=== PATIENT | female | born 1995 | race Two or more races ===

== ENCOUNTER 2021-11-26 23:22 | Emergency (ER) | payer OTHER ==
[2021-11-26 23:29] VITALS: BP 104/66; PULSE 72; RESP 16; TEMP 98.1; BMI 29.2
[2021-11-26] MEDS ORDERED: diphenhydrAMINE HCL 50 MG CAPSULE PO ONE (23:40)
[2021-11-26] MEDS ORDERED: diphenhydrAMINE HCL 50 MG CAPSULE ONE (23:45)
[2021-11-27 00:37] LABS: PH,URINE 5.5 (5.0-8.0); URINE APPEARANCE CLEAR; URINE BILIRUBIN NEGATIVE (NEGATIVE); URINE COLOR YELLOW; URINE GLUCOSE (UA) NEGATIVE (NEGATIVE); URINE KETONE NEGATIVE (NEGATIVE); URINE LEUK ESTERASE NEGATIVE (NEGATIVE); URINE NITRITE NEGATIVE (NEGATIVE); URINE PROTEIN NEGATIVE (NEGATIVE); URINE UROBILINOGEN 0.2 mg/dL (0.2-1.0)
== END 2021-11-27 00:32 | disposition home or self-care (01) ==
LOC: FER 23:22
DX: R21 Rash and other nonspecific skin eruption (principal)
CPT/HCPCS: 81003; 81025; 84703; 87077; 87086; 99283-25